=== PATIENT | male | born 1965 | race Two or more races ===

== ENCOUNTER 2025-05-20 15:48 | Emergency (ER) | payer OTHER ==
[~2025-05-20] VITALS: Ht 177.8 cm; Wt 82.6 kg
[2025-05-20] MEDS ORDERED: FAMOTIDINE/PF 20 MG/2 ML VIAL ONE (16:44)
[2025-05-20] MEDS ORDERED: ONDANSETRON HCL 2 MG/ML VIAL ONE (16:44)
[2025-05-20] MEDS ORDERED: KETOROLAC TROMETHAMINE 30 MG VIAL ONE ×2 (16:44→22:43)
[2025-05-20] MEDS ORDERED: KETOROLAC TROMETHAMINE 30 MG VIAL IV ONE ×2 (16:45→22:45)
[2025-05-20] MEDS ORDERED: FAMOTIDINE/PF 20 MG/2 ML VIAL IV ONE (16:45)
[2025-05-20] MEDS ORDERED: ONDANSETRON HCL 2 MG/ML VIAL IV ONE (16:45)
[2025-05-20] MEDS ORDERED: 0.9 % SODIUM CHLORIDE 1,000 ML IV ONE ×2 (16:45→20:30)
[2025-05-20 17:30] LABS: BASO % 0.3 % (0.1-1.2); EOS # 0.01 (0.04-0.54); EOS % 0.1 % (0.7-7.0); LYMPH # 0.93 (1.18-3.74); LYMPH % 6.2 % (19.3-53.1); MEAN PLATELET VOLUME 9.80 fl (9.4-12.4); MONO # 0.74 (0.24-0.82); MONO % 4.9 % (4.7-12.5); NEUT # 13.23 (1.56-6.13); NEUT % 88.0 % (34.0-71.1); RED CELL DISTRIBUTION WIDTH 12.9 % (11.6-14.4)
[2025-05-20 17:45] LABS: URINE APPEARANCE Clear; URINE BACTERIA 21.6 uL (0.0-1933); URINE BILIRRUBIN Negative (NEGATIVE); URINE BLOOD Large; URINE COLOR Dark Yellow; URINE EPITHELIAL CELLS 7.3 uL (0.0-38.8); URINE GLUCOSE Negative (NEGATIVE); URINE LEUKOCYTE Trace; URINE NITRATE Negative; URINE PROTEIN 30 (NEGATIVE); URINE RBC 243.7 uL (0.0-20.8); URINE UROBILINOGEN 0.2 E.U./dl; URINE WBC 18.1 uL (0.0-23.2)
[2025-05-20 17:58] LABS: URINE CAST 0.58 uL (0.0-1.40); URINE KETONE >=160 (NEGATIVE)
[2025-05-20 18:03] LABS: INR 1.02
[2025-05-20 18:19] LABS: ALT/SGPT 43.0 U/L (12-78); AST/SGOT 26.0 U/L (15-37); BILIRUBIN TOTAL 0.74 mg/dL (0.3-1.2); BUN CREA RATIO 14.0 (7.0-25.0); CREATININE SERUM 1.7 mg/dL (0.70-1.30); GFR 41.46; GLOBULINA 3.9 G/DL (2.4-3.5); GLUCOSE FASTING 147.0 mg/dL (65-100); OSMOLALITY SERUM 291.0 MOSM/KG (275-295)
[2025-05-20] MEDS ORDERED: TAMSULOSIN HCL 0.4 MG CAP PO ONE ×2 (20:30→20:40)
[2025-05-20] MEDS ORDERED: PROMETHAZINE HCL 50 MG/ML AMPUL IM ONE ×2 (20:30→20:40)
[2025-05-20] MEDS ORDERED: MORPHINE SULFATE 2 MG/ML SYRINGE IV ONE (20:45)
[2025-05-20] MEDS ORDERED: METOCLOPRAMIDE HCL 5 MG/ML VIAL ONE (22:43)
[2025-05-20] MEDS ORDERED: METOCLOPRAMIDE HCL 5 MG/ML VIAL IV ONE (22:45)
[2025-05-20] MEDS ORDERED: CEFTRIAXONE SODIUM 1,000 MG VIAL IV ONE (22:45)
[2025-05-20] MEDS ORDERED: CEFTRIAXONE SODIUM 1,000 MG VIAL ONE (23:16)
[2025-05-21] MEDS ORDERED: KETO10TA2 PO (02:46)
[2025-05-21] MEDS ORDERED: TAMS0.4C PO (02:46)
== END 2025-05-21 03:04 ==
LOC: ER 15:49
PROVIDERS: General Practice
DX: N20.1 Calculus of ureter (principal); R10.A2 Flank pain, left side; R11.10 Vomiting, unspecified; R10.9 Unspecified abdominal pain